=== PATIENT | male | born 1970 | race Caucasian/White ===

== ENCOUNTER 2024-12-16 07:53 | Inpatient (IN) | payer BC, SELFPAY ==
[2024-12-16] VITALS (52 sets, daily range): BP systolic 116–143; BP diastolic 65–93; PULSE 50–78; TEMP 36.6; O2SAT 96–99; BMI 27.9; BMI 28.4
--- NOTE | 2024-12-16 08:12 | CT_ITS ---
The [address] [address] Patient Name: JERRY ONEAL MRN: [id number] date: 1970 Sex: M Assigned Patient Location: ER Current Patient Location: ER Accession/Order Number: [id number] Exam Date: 12/16/2024 08:35 Report Date: 12/16/2024 08:43 At the request of: IVIS BARRAZA MD Procedure: CT stroke head/brain wo con CT BRAIN WITHOUT CONTRAST - stroke alert: CLINICAL HISTORY: Right arm numbness today COMPARISON: None TECHNIQUE: Contiguous axial unenhanced images were obtained through the brain. This CT exam was performed using one or more following dose reduction techniques: Automated exposure control, adjustment of the mA and/or kV according to patient size, or use of iterative reconstruction technique. FINDINGS: The ventricles are normal in size and position. There are no areas of abnormal attenuation. There is no hemorrhage, mass effect or extra-axial collections. Mild ethmoid mucosal thickening is seen. The remaining imaged paranasal sinuses and mastoid air cells are clear. CT/CT stroke head/brain wo con IMPRESSION: NO DEFINITE ACUTE INTRACRANIAL ABNORMALITY. FOLLOW-UP IS RECOMMENDED, SYMPTOMS WARRANT. Impression dictated by: Adeline Jimenez M.D. 12/16/2024 8:43 AM Dictation Location: [place] [address] Electronically authenticated by: [id number] Y Date: 12/16/2024 08:43
--- NOTE | 2024-12-16 08:14 | ECG_ITS ---
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 Measurements Intervals [facility] Rate: 56 P: 56 PA: 120 QRS: 54 QRSD: 88 T: 35 QT: 442 QTc: 435 Interpretive Statements 1100 Sinus rhythm 9110 normal ECG No previous ECG available for comparison Electronically Signed On 12-16-2024 9:32:31 EDT by NAOMIE SHAH M.D.
--- NOTE | 2024-12-16 08:14 | XR_ITS ---
The [place] [id number] Patient Name: JERRY ONEAL MRN: [id number] date: 1970 Sex: M Assigned Patient Location: ER Current Patient Location: ER Accession/Order Number: [id number] Exam Date: 12/16/2024 09:05 Report Date: 12/16/2024 09:06 At the request of: IVIS BARRAZA MD Procedure: XR chest 1V PORTABLE AP ERECT CHEST 0820 hours CLINICAL HISTORY: Right-sided numbness COMPARISON: None The heart is within normal limits. There is no vascular congestion. The lungs, as visualized, are clear. There is no effusion or pneumothorax. The osseous structures are intact. XR/XR chest 1V IMPRESSION: NO ACUTE FINDINGS Impression dictated by: Adeline Jimenez M.D. 12/16/2024 9:06 AM Dictation Location: [place] [address] Electronically authenticated by: [id number] Y Date: 12/16/2024 09:06
--- NOTE | 2024-12-16 08:15 | ED.GENADUL1 ---
HPI HPI - General Adult General Chief complaint: Neuro Symptoms/Deficit Stated complaint: LOST FEELING IN R HAND/ FOREARM Time Seen by Provider: 12/16/24 07:54 Source: patient Mode of arrival: walk-in Limitations: no limitations History of Present Illness HPI narrative: 54-year-old male presents for right arm numbness. This started 1 hour ago when he was getting ready to start his workday. There was no injury. He does not have a headache. His symptoms are isolated to his right arm. He describes a pins and needle sensation from just above his elbow down through his fingers. He feels like he cannot move his hand as well as he ought to be able to do. He is right-handed. Symptom has been continuous and he has never had anything like this previously. Related Data Home Medications ?Medication ?Instructions ?Recorded ?Confirmed No Known Home Medications 12/16/24 12/16/24 Allergies Allergy/AdvReac Type Severity Reaction Status Date / Time No Known Drug Allergies Allergy Verified 12/16/24 08:06 Review of Systems ROS Narrative A ten point review of systems is negative except as noted above. [facility] Medical History (Updated 12/16/24 @ 10:15 by Chay Vasquez MD) Hx of sleep apnea ?Z86.69 - Personal history of other diseases of the nervous system and sense organs (ICD-10) Surgical History (Updated 12/16/24 @ 08:13 by Jatinder Miller) History of back surgery ?Z98.890 - Other specified postprocedural states (ICD-10) Social History Little interest or pleasure in doing things: not at all Feeling down, depressed, or hopeless: not at all Exam Narrative Exam Narrative: Nurses note and vital signs reviewed and patient is not hypoxic. General: The patient appears well and in no apparent distress. Patient is resting comfortably on cart. Skin: Warm, dry, no pallor noted. There is no rash noted. Head: Normocephalic, atraumatic Eye: Normal conjunctiva, no drainage Ears, Nose, Mouth, and Throat: oral mucosa is moist. Nares patent. Cardiovascular: Regular Rate and Rhythm Respiratory: Patient is in no distress, no accessory muscle use, lungs are clear to auscultation, no wheezing, rales or rhonchi Back: non-tender GI: Soft and nontender Musculoskeletal: The patient has no evidence of calf tenderness, no pitting edema, symmetrical pulses noted bilaterally Neurological: A&O x4, normal speech; cranial nerves II through XII are intact. Motor strength intact in his lower extremities and his left arm. He is able to grasp with the right hand but the strength is minimally diminished compared to the left. Wrist flexion and extension is intact as is elbow flexion and extension. He has subjective numbness in his right forearm and hand. Psychiatric: Cooperative Constitutional Vital Signs, click to edit/add: Last Vital Signs Pulse 56 L 12/16/24 08:50 Resp 14 12/16/24 08:50 BP 128/78 12/16/24 08:35 Pulse Ox 97 12/16/24 08:50 O2 Del Method Room Air 12/16/24 08:12 Course Vital Signs Vital signs: Vital Signs Pulse Rate 70 12/16/24 08:07 Respiratory Rate 20 12/16/24 08:07 Blood Pressure 143/81 H 12/16/24 08:07 Pulse Oximetry 97 12/16/24 08:07 Oxygen Delivery Method Room Air 12/16/24 08:07 Pulse Rate 56 L 12/16/24 08:50 Respiratory Rate 14 12/16/24 08:50 Blood Pressure 128/78 12/16/24 08:35 Pulse Oximetry 97 12/16/24 08:50 Oxygen Delivery Method Room Air 12/16/24 08:12 Medical Decision Making [facility] Narrative Medical decision making narrative: His NIH score is 1, 1 point for sensation. CTA head and CTA head and neck were all negative. Stroke team was alerted at [facility] who interviewed him by video and pros and cons of tPA versus other treatments were discussed. The decision was made to load him with aspirin and Plavix, no tPA, and to admit him here for further workup. Treatment diagnosis and disposition were discussed with the patient and his . Differential Diagnosis Differential Diagnosis: Stroke, paresthesia, intracranial hemorrhage Lab Data Lab results reviewed: Yes I reviewed the patient's lab results Labs: Lab Results 12/16/24 Range/Units 08:35 WBC 5.1 (4.0-11.0) 10^3/uL RBC 4.07 L (4.70-6.10) 10^6/uL Hgb 12.9 L (14.0-18.0) g/dL Hct 37.3 L (42.0-54.0) % MCV 91.6 (80.0-94.0) fL MCH 31.7 (25.9-34.0) pg MCHC 34.6 (29.9-35.2) g/dL RDW 12.6 (11.0-15.0) % Plt Count 296 (150-450) 10^3/uL MPV 10.4 (9.5-13.5) fL Neut % (Auto) 54.5 (43.0-75.0) % Lymph % (Auto) 29.9 (20.5-60.0) % [place] % (Auto) 13.2 H (1.7-12.0) % Eos % (Auto) 1.0 (0.9-7.0) % Baso % (Auto) 1.2 (0.2-2.0) % Neut # (Auto) 2.8 (1.4-6.5) 10^3/uL Lymph # (Auto) 1.5 (1.2-3.8) 10^3/uL [place] # (Auto) 0.7 (0.3-0.8) 10^3/uL Eos # (Auto) 0.1 (0.0-0.7) 10^3/uL Baso # (Auto) 0.1 (0.0-0.1) 10^3/uL Abs Immat Gran (auto) 0.01 (0.00-0.03) 10^3/uL Imm/Tot Granulo (auto) 0.2 (0.0-0.5) % PT 10.6 (9.0-11.6) sec INR 1.00 APTT 26.2 (22.3-36.2) sec Sodium 142 (136-145) mmol/L Potassium 4.6 (3.5-5.1) mmol/L Chloride 106 (98-107) mmol/L Carbon Dioxide 28.4 (21.0-32.0) mmol/L Anion Gap 12.2 BUN 22.0 H (7.0-18.0) mg/dL Creatinine 1.03 (0.70-1.30) mg/dL Est GFR ( Amer) >60 (>=60 mL/min/1.73m^2) Est GFR (Non-Af Amer) >60 (>=60 mL/min/1.73m^2) BUN/Creatinine Ratio 21.4 Glucose 104 (74-106) mg/dL Calcium 9.0 (8.5-10.1) mg/dL Imaging Data CT scan - head: Radiologist's impression: ITS Impressions Brain CT 12/16/24 08:12 IMPRESSION: NO DEFINITE ACUTE INTRACRANIAL ABNORMALITY. FOLLOW-UP IS RECOMMENDED, SYMPTOMS WARRANT. Impression dictated by: Adeline Jimenez M.D. 12/16/2024 8:43 AM Dictation Location: [email or web address] Electronically authenticated by: [id number] Y Date: 12/16/2024 08:43 Chest X-Ray 12/16/24 08:14 IMPRESSION: NO ACUTE FINDINGS Impression dictated by: Adeline Jimenez M.D. 12/16/2024 9:06 AM Dictation Location: [email or web address] Electronically authenticated by: [id number] Y Date: 12/16/2024 09:06 Head CTA 12/16/24 08:46 IMPRESSION: SLIGHT LIMITED STUDY, WITHOUT OBVIOUS CRITICAL STENOSIS OR VASCULAR OCCLUSIVE DISEASE. Impression dictated by: Adeline Jimenez M.D. 12/16/2024 10:04 AM Dictation Location: [email or web address] Electronically authenticated by: [id number] Y Date: 12/16/2024 10:04 Neck CTA 12/16/24 08:46 IMPRESSION: SLIGHT LIMITED STUDY, WITHOUT OBVIOUS CRITICAL STENOSIS OR VASCULAR OCCLUSIVE DISEASE. Impression dictated by: Adeline Jimenez M.D. 12/16/2024 10:04 AM Dictation Location: [facility] Electronically authenticated by: [id number] Y Date: 12/16/2024 10:04 ECG Data Attestation: I personally reviewed and interpreted this ECG as follows: (EKG on my interpretation shows sinus rhythm with rate of 56 and no acute change) Critical Care Time Critical Care Time Critical Care Time: Yes Total Critical Care Time: 35 Attestation: Due to the high probability of sudden and clinically significant deterioration in the patient's condition he/she required the highest level of my preparedness to intervene urgently I provided critical care time including documentation time, medication orders and management, reevaluation, vital sign assessment, ordering and reviewing of lab tests, ordering and reviewing of x-ray studies, and admission orders. Aggregate critical care time is 35 minutes including only time during which I was engaged in work directly related to his/her care and did not include time spent treating other patients simultaneously. Discharge Plan Discharge Chief Complaint: Neuro Symptoms/Deficit Clinical Impression: Cerebrovascular accident Patient Disposition: Admitted As Inpatient Time of Disposition Decision: 10:15 Condition: Fair
--- NOTE | 2024-12-16 08:46 | CT_ITS ---
The [address] [address] Patient Name: JERRY ONEAL MRN: [id number] date: 1970 Sex: M Assigned Patient Location: ER Current Patient Location: Accession/Order Number: [id number] Exam Date: 12/16/2024 09:47 Report Date: 12/16/2024 10:04 At the request of: IVIS BARRAZA MD Procedure: CT angio neck CTA HEAD AND NECK WITH CONTRAST CLINICAL DATA: Right arm numbness COMPARISON: None Spiral images were obtained through the head and neck following 100 mL of Omnipaque 350. Sagittal and coronal MIP as well as 3-D volume rendered reconstructions of the carotid arteries and [place] were reviewed. Stenosis is evaluated using NASCET criteria. This CT exam was performed using one or more following dose reduction techniques: Automated exposure control, adjustment of the mA and/or kV according to patient size, or use of iterative reconstruction technique. The aortic arch and proximal great vessels, as visualized show no obvious abnormalities. The vertebral arteries are not well seen proximally though this is thought to be technical. Otherwise, they are symmetric in size, without definite dissection or stenosis. No carotid artery plaque or luminal stenosis is seen. There are some shotty cervical lymph nodes. Degenerative changes are seen at the spine, greatest at C6-7 where there is endplate spurring resulting in thecal sac effacement and bilateral foraminal encroachment. The upper imaged lungs show no contributory findings. There is motion artifact. The vertebral arteries appear small distally. The basilar and posterior cerebral arteries are patent with origin of the posterior cerebral artery on the left. There is minor carotid siphon plaque, without significant associated luminal narrowing. Peripheral branches of the middle cerebral arteries are not as well seen and this may relate to motion and limited contrast. The anterior and middle cerebral arteries are otherwise patent, without focal stenosis or suspected thrombosis. No definite aneurysms are seen. CT/CT angio head IMPRESSION: SLIGHT LIMITED STUDY, WITHOUT OBVIOUS CRITICAL STENOSIS OR VASCULAR OCCLUSIVE DISEASE. Impression dictated by: Adeline Jimenez M.D. 12/16/2024 10:04 AM Dictation Location: [place] [address] Electronically authenticated by: [id number] Y Date: 12/16/2024 10:04
--- NOTE | 2024-12-16 08:46 | CT_ITS ---
The [address] [address] Patient Name: JERRY ONEAL MRN: [id number] date: 1970 Sex: M Assigned Patient Location: ER Current Patient Location: Accession/Order Number: [id number] Exam Date: 12/16/2024 09:47 Report Date: 12/16/2024 10:04 At the request of: IVIS BARRAZA MD Procedure: CT angio neck CTA HEAD AND NECK WITH CONTRAST CLINICAL DATA: Right arm numbness COMPARISON: None Spiral images were obtained through the head and neck following 100 mL of Omnipaque 350. Sagittal and coronal MIP as well as 3-D volume rendered reconstructions of the carotid arteries and [place] were reviewed. Stenosis is evaluated using NASCET criteria. This CT exam was performed using one or more following dose reduction techniques: Automated exposure control, adjustment of the mA and/or kV according to patient size, or use of iterative reconstruction technique. The aortic arch and proximal great vessels, as visualized show no obvious abnormalities. The vertebral arteries are not well seen proximally though this is thought to be technical. Otherwise, they are symmetric in size, without definite dissection or stenosis. No carotid artery plaque or luminal stenosis is seen. There are some shotty cervical lymph nodes. Degenerative changes are seen at the spine, greatest at C6-7 where there is endplate spurring resulting in thecal sac effacement and bilateral foraminal encroachment. The upper imaged lungs show no contributory findings. There is motion artifact. The vertebral arteries appear small distally. The basilar and posterior cerebral arteries are patent with origin of the posterior cerebral artery on the left. There is minor carotid siphon plaque, without significant associated luminal narrowing. Peripheral branches of the middle cerebral arteries are not as well seen and this may relate to motion and limited contrast. The anterior and middle cerebral arteries are otherwise patent, without focal stenosis or suspected thrombosis. No definite aneurysms are seen. CT/CT angio neck IMPRESSION: SLIGHT LIMITED STUDY, WITHOUT OBVIOUS CRITICAL STENOSIS OR VASCULAR OCCLUSIVE DISEASE. Impression dictated by: Adeline Jimenez M.D. 12/16/2024 10:04 AM Dictation Location: [place] [address] Electronically authenticated by: [id number] Y Date: 12/16/2024 10:04
[2024-12-16 08:47] LABS: Basophils Absolute Auto 0.1 10^3/uL (0.0-0.1); Basophils Percent Auto 1.2 % (0.2-2.0); Eosinophils Absolute Auto 0.1 10^3/uL (0.0-0.7); Hematocrit 37.3 % (42.0-54.0); Hemoglobin 12.9 g/dL (14.0-18.0); Immature Granulocytes Abs Auto 0.01 10^3/uL (0.00-0.03); Immature Granulocytes Pct Auto 0.2 % (0.0-0.5); Lymphocytes Absolute Auto 1.5 10^3/uL (1.2-3.8); Lymphocytes Percent Auto 29.9 % (20.5-60.0); Mean Corpuscular HGB Conc 34.6 g/dL (29.9-35.2); Mean Corpuscular Hemoglobin 31.7 pg (25.9-34.0); Mean Corpuscular Volume 91.6 fL (80.0-94.0); Mean Platelet Volume 10.4 fL (9.5-13.5); Monocytes Absolute Auto 0.7 10^3/uL (0.3-0.8); Monocytes Percent Auto 13.2 % (1.7-12.0); Neutrophils Absolute Auto 2.8 10^3/uL (1.4-6.5); Neutrophils Percent Auto 54.5 % (43.0-75.0); Platelet Count 296 10^3/uL (150-450); Red Blood Count 4.07 10^6/uL (4.70-6.10); Red Cell Distribution Width 12.6 % (11.0-15.0); White Blood Count 5.1 10^3/uL (4.0-11.0)
[2024-12-16 08:50] LABS: Anion Gap 12.2; BUN Creatinine Ratio 21.4; Carbon Dioxide 28.4 mmol/L (21.0-32.0); Chloride 106 mmol/L (98-107); Estimated GFR (African America >60 (>=60 mL/min/1.73m^2); Estimated GFR (Non-African Ame >60 (>=60 mL/min/1.73m^2); Glucose 104 mg/dL (74-106); Potassium 4.6 mmol/L (3.5-5.1); Sodium 142 mmol/L (136-145)
[2024-12-16 09:00] LABS: Partial Thromboplastin Time 26.2 sec (22.3-36.2); Prothrombin Time 10.6 sec (9.0-11.6)
--- NOTE | 2024-12-16 10:16 | MR_ITS ---
[address] [address] Patient Name: JERRY ONEAL MRN: [id number] date: 1970 Sex: M Assigned Patient Location: MS Current Patient Location: MS Accession/Order Number: [id number] Exam Date: 12/16/2024 17:42 Report Date: 12/16/2024 17:48 At the request of: MARYLOU ARREDONDO MD Procedure: MR head/brain wo con EXAMINATION: MRI OF THE BRAIN WITHOUT CONTRAST CLINICAL HISTORY: CVA COMPARISON: CT angiogram 12/16/2024 TECHNIQUE: Multiecho, multiplanar imaging of the brain was performed without enhancement. FINDINGS: Abnormal restricted diffusion left precentral gyrus corresponding within the region of the left hand knob. Remote focus of gliosis left parietal lobe, otherwise ventricles and sulci otherwise unremarkable size and configuration for the patient's age. No shift of midline structure. Basal cisterns are patent. Remote right cerebellar stroke with associated hemosiderin. Major intracranial arterial vascular flow voids appear preserved. Cataract surgery. Gtqn-yb-dvoloqud ethmoid sinus mucosal thickening. MR/MR head/brain wo con IMPRESSION: Acute stroke left precentral gyrus within the region of the left hand knob. No hemorrhagic transformation.. Scattered foci of remote stroke notably left parietal lobe and right cerebellum. Impression dictated by: Jaden Torres M.D. 12/16/2024 5:48 PM Dictation Location: [place] [address] Electronically authenticated by: [id number] Y Date: 12/16/2024 17:48
--- NOTE | 2024-12-16 10:16 | CA_ITS ---
Patient Name: JERRY ONEAL MR#: [id number] : 1970 Exam Date: 12/16/2024 Ordering Doctor: MARYLOU ARREDONDO ECHOCARDIOGRAM REPORT PROCEDURE: CA ECHO W/ CON INDICATIONS: CVA COMPARISON: None. DESCRIPTION: COMPLETE ECHOCARDIOGRAM Real-time transthoracic echocardiography with 2D, M-mode, spectral and color flow Doppler performed. QUALITY: Lumason contrast was administered due to suboptimal imaging for left ventricular opacification to improve delineation of endocardial boarders. Lumason contrast was administered to rule out possible presence of thrombus. LEFT VENTRICLE: Normal chamber size. Normal left ventricular wall thickness. Normal systolic function. Estimated left ventricular ejection fraction is 55%. No evidence of left ventricular thrombus is seen. LV EF: Normal left ventricular ejection fraction, (55%). DIASTOLIC: Normal diastolic function. ATRIAL SEPTUM: LEFT ATRIUM: Normal chamber size. RIGHT ATRIUM: Mild dilatation. RIGHT VENTRICLE: Normal chamber size. Normal right ventricular systolic function. TRICUSPID VALVE: Normal mobility and thickness. No stenosis with no regurgitation. Unable to assess right-sided pressures due to lack of measurable tricuspid regurgitation. MITRAL VALVE: Normal mobility and thickness. No evidence of mitral valve stenosis. There is no mitral annular calcification. No mitral regurgitation. AORTIC VALVE: Normal trileaflet appearance. No visible sclerosis. Normal leaflet mobility. No evidence of aortic valve stenosis. No aortic regurgitation. AORTIC ROOT: Normal diameter and appearance, measuring 3.9 cm. PULMONIC VALVE: Normal thickness and mobility. No stenosis. Trivial regurgitation. PERICARDIUM: No evidence of pericardial effusion. IVC: IVC is dilated (2.3 cm), does not fully collapse. PLEURA: CONCLUSION: 1. Normal left ventricular size and systolic function. LVEF is estimated at 55%. No evidence of wall motion abnormalities. No evidence of left ventricular thrombus. 2. Normal right ventricular size and systolic function. 3. No significant valvular dysfunction. 4. Unable to assess right-sided pressures due to lack of measurable tricuspid regurgitation. Adult Echocardiography Procedure Report Left Ventricle LVEDD (3.7 - 5.6 cm): 5.41 cm LVESD (2.2 - 4.0 cm): 4.27 cm LVIVS thickness (0.6 - 1.2 cm): 0.96 cm LVPW thickness (0.5 - 1.0 cm): 1.04 cm e': 0.10 m/s E - e': 4.15 LVOT Max Gradient: 1.95 mm[Hg] LVOT Area (cm2): 0.70 m/s Peak Velocity (LVOT): 0.70 m/s LVOT Diameter 2.60 cm Left Ventricular Ejection Fraction: 55% Left Atrium LA Volume Index (2D A2C): 32.20 ml/m2 Left Atrium Systolic Dimension: 3.25 cm Mitral Valve MV E to A Ratio: 0.96 Mitral Valve A-Wave Peak Velocity: 0.45 m/s Mitral Valve E-Wave Peak Velocity: 0.43 m/s Right Ventricle Aorta AO Root Diam: 3.92 cm Aortic Valve AoV Area (Peak Timoteo): 4.15 cm2, 4.15 cm2 Peak Velocity(Antegrade Flow): 0.89 m/s Peak Gradient(Antegrade Flow): 3.20 mm[Hg] Tricuspid Valve Pulmonic Valve Peak Gradient: 1.56 mm[Hg], 1.63 mm[Hg] Right Atrium Right Atrium Systolic Pressure: 59.13 ml, 59.13 ml Dictated by: Leland Anna M.D. on 12/16/2024 at 21:34 Approved by: Leland Anna M.D. on 12/16/2024 at 21:38
[2024-12-16] MEDS: ASPIRIN 325 MG TABLET PO (10:27)
[2024-12-16] MEDS: CLOPIDOGREL BISULFATE 75 MG TABLET 300 MG PO (10:30)
[2024-12-16 10:33] LABS: Chol HDL Ratio 2.3; Cholesterol 200 mg/dL (<=200); Estimated Average Glucose 114 mg/dL; Glycohemoglobin A1C 5.6 % (4.5-6.2); HDL Cholesterol 88 mg/dL (40-60); Triglycerides 38 mg/dL (<=150); VLDL CHOLESTEROL 7.6 mg/dL
--- NOTE | 2024-12-16 11:52 | P.IMHP_ITS ---
Internal Medicine - H&P: HPI History of Present Illness Chief complaint: LOST FEELING IN R HAND/FOREARM, CEREBROVASCULAR AC Narrative: This is a 54 y.o male with no past medical history, who presents today due to sudden weakness and numbness of his right hand while working today. History obtained from the patient, his at bedside as well as from the ED staff and his chart. 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 He did not have any speech difficulties or other focal weakness or dizziness or syncope. He denies any chest pain or nausea or vomiting or diaphoresis. He was brought to the hospital for stroke workup. His symptoms improved during the ER stay but still complained of some weakness when I saw him. In the ED, patient's vitals were stable. His CT head without contrast as well as CT angio of the neck and brain were all negative for acute pathology. His labs in the ED were not significant, EKG showed sinus rhythm with heart rate of 56 bpm. No signs of arrhythmia. ED contacted neurointerventional team at [facility] who video call the patient and did a video visit with them, his NIH score in the ER was 1, and a discussion was held between the neurointerventional team as well as the patient and his at bedside and they were against the recommendation for tPA. They recommended to admit him here to [facility] and the need to transfer to any other hospital for now. For stroke workup. I discussed the plan with the patient and his . He told me that he works 10-hour shifts every day, his mother and father had heart attacks when they were 74-year-old each. He drinks alcohol 4-5 beers daily last drink was last night. No smoking no drug use. Review of Systems ROS Status of ROS 10 or more systems reviewed and unremark able except as noted in history and below [facility] Medical History (Updated 12/16/24 @ 11:05 by Teresa Love) Obstructive sleep apnea on CPAP ?G47.33 - Obstructive sleep apnea (adult) (pediatric) (ICD-10) Hx of sleep apnea ?Z86.69 - Personal history of other diseases of the nervous system and sense organs (ICD-10) Surgical History (Updated 12/16/24 @ 08:13 by Jatinder Miller) History of back surgery ?Z98.890 - Other specified postprocedural states (ICD-10) Family History (Updated 12/16/24 @ 11:06 by Teresa Love) Father Family history of CHF (congestive heart failure) Family history of myocardial infarction Mother Family history of CHF (congestive heart failure) Family history of myocardial infarction Social History (Updated 12/16/24 @ 11:10 by Teresa Love) Within the past year, how often did you have a drink containing alcohol: 4 or more times a week Within the past year, how many standard drinks containing alcohol did you have on a typical day: 5 or 6 Within the past year, how often did you have six or more drinks on one occasion: daily or almost daily Total score: 8 Score interpretation: A score of 4 or more indicates drinking is likely to affect patient's safety. Smoking status: Former smoker Non-prescribed substance use: denies use Previous occupational history: [employer] Highest level of school completed/degree received: high school graduate Are you now , , , , never or living with a partner: In a typical week, how many times do you talk on the telephone with family, friends, or neighbors: twice per week How often do you get together with friends or relatives: twice per week How often do you attend anglican or anglican services: never Do you belong to any clubs or organizations such as anglican groups unions, fraternal or athletic groups, or school groups: no Total score: 2 Score interpretation: A score of greater than or equal to 2 indicates the lowest level of social isolation. Little interest or pleasure in doing things: not at all Feeling down, depressed, or hopeless: not at all Feel stressed/tense/nervous/anxious/difficulty sleeping: not at all Meds Home Medications and Allergies Home Medications ?Medication ?Instructions ?Recorded ?Confirmed ?Type No Known Home Medications 12/16/2411/24 History Allergies Allergy/AdvReac Type Severity Reaction Status Date / Time No Known Drug Allergies Allergy Verified 12/16/24 08:06 Exam Narrative Exam Narrative: General: The patient appears well and in no apparent distress. Patient is resting comfortably on cart. Very pleasant and cooperative. Skin: Warm, dry, no pallor noted. There is no rash noted. Head: Normocephalic, atraumatic Eye: Normal conjunctiva, no drainage Ears, Nose, Mouth, and Throat: oral mucosa is moist Cardiovascular: Regular Rate and Rhythm, normal S1 and S2 Respiratory: Patient is in no distress, no accessory muscle use, lungs are clear to auscultation, no wheezing, rales or rhonchi GI: Soft and nontender, no signs of acute abdomen Musculoskeletal: The patient has no evidence of calf tenderness, no pitting edema, symmetrical pulses noted bilaterally Neurological: A&O x4, normal speech; cranial nerves II through XII are intact. Right sided hand mild weak drip. NIH is 1 maximum, No numbness anymore in right hand. No focal motor or sensory deficits. Constitutional Vital Signs, click to edit/add: Last Vital Signs Pulse 57 L 12/16/24 11:11 Resp 18 12/16/24 11:11 BP 136/93 H 12/16/24 11:11 Pulse Ox 99 12/16/24 11:11 O2 Del Method Room Air 12/16/24 11:17 Internal Medicine - H&P: Reslt Labs Labs: Short CBC 12/16/24 Range/Units 08:35 WBC 5.1 (4.0-11.0) 10^3/uL Hgb 12.9 L (14.0-18.0) g/dL Hct 37.3 L (42.0-54.0) % Plt Count 296 (150-450) 10^3/uL BMP 12/16/24 08:35 Sodium 142 Potassium 4.6 Chloride 106 Carbon Dioxide 28.4 BUN 22.0 H Creatinine 1.03 Glucose 104 Calcium 9.0 Assessment and Plan Assessment and Plan (1) Cerebrovascular accident: (2) History of back surgery: Plan Right Hand parasthesia and weakness, Ruling out TIA vs CVA -Admit pt to medical floor with telemetry under hospitalist service -Patient was already seen by neurointerventional team at [facility], he was not a candidate for tPA or mechanical thrombectomy. Decision was made by neurointerventional team at primary care to admit and here to [facility]. - Start aspirin 81 mg p.o. daily - Start atorvastatin 40 mg nightly - Start Plavix 75 mg p.o. - Obtain A1c, lipid panel, and TSH for risk stratification - Obtain MRI brain without contrast - Obtain echo - Patient will need to be discharged athletic monitor when the time comes -PT/OT/AUTOMOBILE SERVICE STATION MECHANIC alber - I discussed the plan with the patient and in details. Counseled on alcohol cessation. Answered all her questions. Nursing team was present during this conversation
[2024-12-16] MEDS: SULFUR HEXAFLUORIDE MICROSPHR 25 MG/5 ML VIAL 10 MG IV (15:41)
[2024-12-16] MEDS: ATORVASTATIN CALCIUM 40 MG TABLET PO (21:09)
[2024-12-17] VITALS (8 sets, daily range): BP systolic 126–145; BP diastolic 80–81; PULSE 48–76; TEMP 36.6–36.8; O2SAT 97–98
[2024-12-17 05:08] LABS: Basophils Absolute Auto 0.1 10^3/uL (0.0-0.1); Basophils Percent Auto 1.1 % (0.2-2.0); Eosinophils Absolute Auto 0.2 10^3/uL (0.0-0.7); Eosinophils Percent Auto 2.8 % (0.9-7.0); Hemoglobin 12.9 g/dL (14.0-18.0); Immature Granulocytes Abs Auto 0.01 10^3/uL (0.00-0.03); Immature Granulocytes Pct Auto 0.2 % (0.0-0.5); Lymphocytes Percent Auto 37.1 % (20.5-60.0); Mean Corpuscular HGB Conc 33.9 g/dL (29.9-35.2); Mean Corpuscular Hemoglobin 31.3 pg (25.9-34.0); Mean Corpuscular Volume 92.2 fL (80.0-94.0); Mean Platelet Volume 10.3 fL (9.5-13.5); Monocytes Absolute Auto 0.7 10^3/uL (0.3-0.8); Monocytes Percent Auto 13.1 % (1.7-12.0); Neutrophils Absolute Auto 2.4 10^3/uL (1.4-6.5); Neutrophils Percent Auto 45.7 % (43.0-75.0); Platelet Count 271 10^3/uL (150-450); Red Blood Count 4.12 10^6/uL (4.70-6.10); Red Cell Distribution Width 12.6 % (11.0-15.0); White Blood Count 5.3 10^3/uL (4.0-11.0)
[2024-12-17 05:33] LABS: Alanine Aminotransferase 25 U/L (16-63); Albumin Globulin Ratio 1.1; Albumin Level 3.4 g/dL (3.4-5.0); Alkaline Phosphatase 55 U/L (46-116); Aspartate Amino Transferase 19 U/L (15-37); Bilirubin Total 0.5 mg/dL (0.2-1.0); Calcium 8.9 mg/dL (8.5-10.1); Chloride 105 mmol/L (98-107); Estimated GFR (African America >60 (>=60 mL/min/1.73m^2); Estimated GFR (Non-African Ame >60 (>=60 mL/min/1.73m^2); Globulin 3.1 g/dL; Glucose 101 mg/dL (74-106); Sodium 139 mmol/L (136-145); Total Protein 6.5 g/dL (6.4-8.2)
[2024-12-17] MEDS: ASPIRIN 81 MG TABLET.DR PO (08:07)
[2024-12-17] MEDS: CLOPIDOGREL BISULFATE 75 MG TABLET PO (08:10)
--- NOTE | 2024-12-17 10:25 | CA_ITS ---
Patient Name: JERRY ONEAL MR#: [id number] : 1970 Exam Date: 12/17/2024 Ordering Doctor: MARYLOU ARREDONDO ECHOCARDIOGRAM REPORT PROCEDURE: CA ECHO LIMITED INDICATIONS: bubble study, recent CVA, complete echocardiogram done 12/16/2024 COMPARISON: None. DESCRIPTION: Limited ECHOCARDIOGRAM Real-time transthoracic echocardiography with 2D and M-mode performed. QUALITY: Technical quality was good. Limited echocardiogram for bubble study. Complete echocardiogram was done previous day (12/16/2024). LEFT VENTRICLE: LV EF: DIASTOLIC: ATRIAL SEPTUM: ASD vs PFO Agitated saline contrast reveals an intra-cardiac shunt. LEFT ATRIUM: RIGHT ATRIUM: RIGHT VENTRICLE: TRICUSPID VALVE: MITRAL VALVE: AORTIC VALVE: AORTIC ROOT: PULMONIC VALVE: PERICARDIUM: IVC: PLEURA: CONCLUSION: 1. Agitated saline injections reveal an intracardiac shunt with large amount of contrast passage. Dictated by: Leland Anna M.D. on 12/17/2024 at 19:01 Approved by: Leland Anna M.D. on 12/17/2024 at 19:12
--- NOTE | 2024-12-17 11:22 | SWNOTE1 ---
SW and I stopped in pt's room to discuss OT recommendation of outpatient therapy. Pt voiced he would like to think about it. SW to follow as needed.
--- NOTE | 2024-12-17 12:13 | CM.NOTE ---
Rounds made with Dr. Kolb. Dr. Kolb reviews Radiology findings with Mr. Barrera and . Reviews recommendations by Neurologist. Will order follow up with Neurology for today. Mrs. Barrera states Mr. Barrera recently started on home cpap-will bring in for use while in hospital. Echo with bubble study ordered and ultrasound legs. All questions answered by Dr. Kolb.
--- NOTE | 2024-12-17 15:55 | P.IMPN_ITS ---
Progress Note: A&P Assessment and Plan (1) Cerebrovascular accident: (2) History of back surgery: Plan Right Hand parasthesia and weakness Acute CVA iso PFO DVT of lower extremities bilaterally is ruled out SHARA on CPAP -Admit pt to medical floor with telemetry under hospitalist service -Patient was already seen by neurointerventional team at [facility], he was not a candidate for tPA or mechanical thrombectomy. Decision was made by neurointerventional team at primary care to admit and here to [facility]. - Start aspirin 81 mg p.o. daily - Start atorvastatin 40 mg nightly - Start Plavix 75 mg p.o. - Obtain A1c, lipid panel, and TSH for risk stratification - Obtain MRI brain without contrast - Obtain echo - Patient will need to be discharged teletypesetter monitor when the time comes -PT/OT/AUTO BRAKE MECHANIC eval - I discussed the plan with the patient and in details. Counseled on alcohol cessation. Answered all her questions. Nursing team was present during this conversation 12/17/2024 Saw the pt and at bedside. Physical exam and HPI as above. I was informed by the nursing team that pt had a positive bubble study on his echo today, the limited echo done yesterday showed normal LVEF with no evidence of LV thrombus, and his right ventricular size and systolic function were normal, and no valvular dysfunction. I initially spoke to Dr. Islas, public health engineer adon, and he recommended Eliquis and follow up with cardiology for evaluation for PFO closure, which is usually the field of Dr. Calvillo or Dr. Anna, I then received a call from Neurology recommending only aspirin 81 mg PO daily, and to send for outpatient cardio follow up for evaluation for MUNIR and possible PFO closure. I circled back with Dr. Islas, and he recommended consulting with Dr. Calvillo, who recommended against anticoagulation in the absence of presence of DVT or reported hx of thrombophilia. Also spoke to neurology again and confirmed they want the pt to be on aspirin. Will order teletypesetter monitor on patient's discharge, would not order hypercoagulable workup given pt;s acute CVA. Discussed the recommendations with the pt and his . Answered all their questions. Will make sure pt has a hematology, cardiology, and neurology workup as outpt. Will dc pt tomorrow with a teletypesetter monitor. 1. Normal left ventricular size and systolic function. LVEF is estimated at 55%. No evidence of wall motion abnormalities. No evidence of left ventricular thrombus. 2. Normal right ventricular size and systolic function. 3. No significant valvular dysfunction. 4. Unable to assess right-sided pressures due to lack of measurable tricuspid regurgitation. Internal Medicine - PN: Subj Subjective Interval history: Pt seen and examined at bedside. He was accompanied by his in the room. His right hand is still weaker than the left, but overall improving. Was walking in the room.Worked with PT and OT today. Labs reviewed Exam Narrative Exam Narrative: General: The patient appears well and in no apparent distress. Patient is resting comfortably on cart. Very pleasant and cooperative. Skin: Warm, dry, no pallor noted. There is no rash noted. Head: Normocephalic, atraumatic Eye: Normal conjunctiva, no drainage Ears, Nose, Mouth, and Throat: oral mucosa is moist Cardiovascular: Regular Rate and Rhythm, normal S1 and S2 Respiratory: Patient is in no distress, no accessory muscle use, lungs are clear to auscultation, no wheezing, rales or rhonchi GI: Soft and nontender, no signs of acute abdomen Musculoskeletal: The patient has no evidence of calf tenderness, no pitting edema, symmetrical pulses noted bilaterally Neurological: A&O x4, normal speech; cranial nerves II through XII are intact. Right sided hand mild weak drip. better than yesterday, No numbness anymore in right hand. No focal motor or sensory deficits. Constitutional Vital Signs, click to edit/add: Last Vital Signs Temp 98.2 F 12/17/24 07:27 Pulse 63 12/17/24 10:18 Resp 16 12/17/24 07:27 BP 145/81 H 12/17/24 07:27 Pulse Ox 98 12/17/24 07:27 O2 Del Method Room Air 12/17/24 07:27 Internal Medicine - PN: Obj Da Labs Labs: Laboratory Results - last 24 hr 12/17/24 04:56 WBC 5.3 RBC 4.12 L Hgb 12.9 L Hct 38.0 L MCV 92.2 MCH 31.3 MCHC 33.9 RDW 12.6 Plt Count 271 MPV 10.3 Neut % (Auto) 45.7 Lymph % (Auto) 37.1 Jerauld % (Auto) 13.1 H Eos % (Auto) 2.8 Baso % (Auto) 1.1 Neut # (Auto) 2.4 Lymph # (Auto) 2.0 Jerauld # (Auto) 0.7 Eos # (Auto) 0.2 Baso # (Auto) 0.1 Abs Immat Gran (auto) 0.01 Imm/Tot Granulo (auto) 0.2 Sodium 139 Potassium 4.0 Chloride 105 Carbon Dioxide 27.0 Anion Gap 11.0 BUN 18.0 Creatinine 0.82 Est GFR ( Amer) >60 Est GFR (Non-Af Amer) >60 BUN/Creatinine Ratio 22.0 Glucose 101 Calcium 8.9 Total Bilirubin 0.5 AST 19 ALT 25 Alkaline Phosphatase 55 Total Protein 6.5 Albumin 3.4 Globulin 3.1 Albumin/Globulin Ratio 1.1
--- NOTE | 2024-12-17 16:56 | PM.DS1 ---
DS: Providers Provider Date of admission: 12/16/24 10:55 Primary care physician: Non-Staff Physician, Consults: 12/16/24 09:55 Consult to Telestroke Routine Reason for consultation: Numbness, right arm 12/16/24 10:16 Consult to Telestroke Routine Reason for consultation: CVA, seen by telestroke team in the ED 12/16/24 11:40 Occupational Therapy Eval and Treat Routine Reason for consultation: CVA Physical Therapy Eval and Treat Routine Reason for consultation: CVA Speech Therapy Eval and Treat Routine Reason for consultation: CVA Anticipated date of discharge: 12/17/24 DS: Diagnosis Discharge Diagnosis (1) Cerebrovascular accident: (2) History of back surgery: Plan As above DS: Summary Hospital Course Hospital Course: This is a 54 y.o male with no past medical history, who presents today due to sudden weakness and numbness of his right hand while working today. History obtained from the patient, his at bedside as well as from the ED staff and his chart. 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 He did not have any speech difficulties or other focal weakness or dizziness or syncope. He denies any chest pain or nausea or vomiting or diaphoresis. He was brought to the hospital for stroke workup. His symptoms improved during the ER stay but still complained of some weakness when I saw him. In the ED, patient's vitals were stable. His CT head without contrast as well as CT angio of the neck and brain were all negative for acute pathology. His labs in the ED were not significant, EKG showed sinus rhythm with heart rate of 56 bpm. No signs of arrhythmia. ED contacted neurointerventional team at [facility] who video call the patient and did a video visit with them, his NIH score in the ER was 1, and a discussion was held between the neurointerventional team as well as the patient and his at bedside and they were against the recommendation for tPA. They recommended to admit him here to [facility] and the need to transfer to any other hospital for now. For stroke workup. I discussed the plan with the patient and his . He told me that he works 10-hour shifts every day, his mother and father had heart attacks when they were 74-year-old each. He drinks alcohol 4-5 beers daily last drink was last night. No smoking no drug use. Right Hand parasthesia and weakness Acute CVA iso PFO DVT of lower extremities bilaterally is ruled out SHARA on CPAP -Admit pt to medical floor with telemetry under hospitalist service -Patient was already seen by neurointerventional team at [facility], he was not a candidate for tPA or mechanical thrombectomy. Decision was made by neurointerventional team at primary care to admit and here to [facility]. - Start aspirin 81 mg p.o. daily - Start atorvastatin 40 mg nightly - Start Plavix 75 mg p.o. - Obtain A1c, lipid panel, and TSH for risk stratification - Obtain MRI brain without contrast - Obtain echo - Patient will need to be discharged site monitor when the time comes -PT/OT/TECHNOLOGY APPLICATIONS TEACHER eval - I discussed the plan with the patient and in details. Counseled on alcohol cessation. Answered all her questions. Nursing team was present during this conversation 12/17/2024 Saw the pt and at bedside. Physical exam and HPI as above. I was informed by the nursing team that pt had a positive bubble study on his echo today, the limited echo done yesterday showed normal LVEF with no evidence of LV thrombus, and his right ventricular size and systolic function were normal, and no valvular dysfunction. I initially spoke to Dr. Islas, registered travel nurse surgical nurse practitioner, and he recommended Eliquis and follow up with cardiology for evaluation for PFO closure, which is usually the field of Dr. Calvillo or Dr. Anna, I then received a call from Neurology recommending only aspirin 81 mg PO daily, and to send for outpatient cardio follow up for evaluation for MUNIR and possible PFO closure. I circled back with Dr. Islas, and he recommended consulting with Dr. Calvillo, who recommended against anticoagulation in the absence of presence of DVT or reported hx of thrombophilia. Also spoke to neurology again and confirmed they want the pt to be on aspirin. Will order site monitor on patient's discharge, would not order hypercoagulable workup given pt;s acute CVA. Discussed the recommendations with the pt and his . Answered all their questions. Will make sure pt has a hematology, cardiology, and neurology workup as outpt. Will dc pt today as pt was so eager to leave, and there is nothing else to offer during this hospitalization. Plan was coordinated with neurology and cardiology service. Pt can be off work for 2 weeks, and also to use his CPAP at home, also counseled him to avoid laborious activities as much as possible. Status at Discharge Overall status at discharge: patient is back to baseline Time Spent with Patient Time attestation: Total time spent providing and/or coordinating discharge services: Exam Constitutional Vital Signs, click to edit/add: Last Vital Signs Temp 98.2 F 12/17/24 07:27 Pulse 63 12/17/24 10:18 Resp 16 12/17/24 07:27 BP 145/81 H 12/17/24 07:27 Pulse Ox 98 12/17/24 07:27 O2 Del Method Room Air 12/17/24 16:00 DS: Data Data Completed and Pending Labs on day of discharge: Labs from last 24 hours 12/17/24 04:56 WBC 5.3 RBC 4.12 L Hgb 12.9 L Hct 38.0 L MCV 92.2 MCH 31.3 MCHC 33.9 RDW 12.6 Plt Count 271 MPV 10.3 Neut % (Auto) 45.7 Lymph % (Auto) 37.1 Colbert % (Auto) 13.1 H Eos % (Auto) 2.8 Baso % (Auto) 1.1 Neut # (Auto) 2.4 Lymph # (Auto) 2.0 Colbert # (Auto) 0.7 Eos # (Auto) 0.2 Baso # (Auto) 0.1 Abs Immat Gran (auto) 0.01 Imm/Tot Granulo (auto) 0.2 Sodium 139 Potassium 4.0 Chloride 105 Carbon Dioxide 27.0 Anion Gap 11.0 BUN 18.0 Creatinine 0.82 Est GFR ( Amer) >60 Est GFR (Non-Af Amer) >60 BUN/Creatinine Ratio 22.0 Glucose 101 Calcium 8.9 Total Bilirubin 0.5 AST 19 ALT 25 Alkaline Phosphatase 55 Total Protein 6.5 Albumin 3.4 Globulin 3.1 Albumin/Globulin Ratio 1.1 Discharge Plan Discharge Disposition: Home, Self-Care Condition: Good Discharge Medications: New atorvastatin 40 mg Tablet 40 mg PO QHS 30 Days Qty: 30 0RF aspirin 81 mg Tablet,Delayed Release (Dr/Ec) 81 mg PO QD 30 Days Qty: 30 0RF Activity: resume usual activities as tolerated Print Language: Chinese Patient Instructions: Ischemic Stroke (GEN), Patent Foramen Ovale (DC), Patent Foramen Ovale (GEN) Activity Restrictions/Additional Instructions: FOLLOW UP WITH YOUR NEUROLOGIST AND ENGRAVER APPRENTICE DECORATIVE Forms: Portal Instructions Follow Up Appointments: . December 23 @ 2:45pm with [facility] [phone] . January 01 @ 11:45am with [place] [facility] at [facility] [phone] Sun. Jan.28 @ 11:30am with [facility] Neurology [address] [phone]
--- NOTE | 2024-12-18 14:34 | CM.DCFOLLOWU ---
1st attempt 12/18/24, no answer
--- NOTE | 2024-12-19 09:59 | CM.DCFOLLOWU ---
2nd attempt 12/19/24, no answer
--- NOTE | 2024-12-22 12:01 | CM.DCFOLLOWU ---
3rd attempt 12/22/24, no contact
== END 2024-12-17 17:29 | disposition home or self-care (01) | DRG 65 ==
LOC: ER 10:15 → MS 11:03
PROVIDERS: Admitting Provider Student in an Organized Health Care Education/Training Program; Emergency Provider Emergency Medicine; Visit Provider Student in an Organized Health Care Education/Training Program
DX: I63.9 Cerebral infarction, unspecified (principal); Q21.12 Patent foramen ovale; R29.701 NIHSS score 1; G47.33 Obstructive sleep apnea (adult) (pediatric); Z87.891 Personal history of nicotine dependence
CPT/HCPCS: 36415; 70450; 70496; 70498; 70551; 71045; 80048; 80053; 80061; 83036; 85025; 85610; 85730; 92523; 93005; 93270; 93308; 93880; 93970; 97110; 97161; 97165; 99285; C8929; Q9950; Q9967

== ENCOUNTER 2025-05-22 11:57 | Outpatient (OUT) | payer BC, SELFPAY ==
--- OUTSIDE RECORDS SUMMARY | 2025-05-22 12:04 | XMS_ITS | Encounter Summary ---
Author Organization [facility] Address [address] [place] [address] Care Team Providers Care Surgical Device Sales Representative Name Role Phone Marizol Sebastian MD Primary Care Provider [phone] Encounter Details DateTypeDepartmentCare Team (Latest Contact Info)Hlpocxjhluk26/14/2025Telephone [facility] [place] [address] [place] [address] Ana Flores MA Social History Tobacco UseTypesPacks/DayYears UsedDateSmoking Tobacco: NeverSmokeless Tobacco: NeverAlcohol UseStandard Drinks/WeekCommentsYes0 (1 standard drink = 0.6 oz pure alcohol)6 pack beer dailySex and Gender InformationValueDate RecordedSex Assigned at MorklKxgz66/01/2025 8:54 AM EDTLegal PpvZxor0612/17/2024 3:35 PM EDT Gender EpesmdjcUaoa68/01/2025 8:54 AM EDTSexual OrientationHeterosexual or Ahuzwxse00/01/2025 8:54 AM EDTdocumented as of this encounter Miscellaneous Notes * Telephone Encounter - Ana Flores MA - 05/08/2025 11:48 AM EST MD Ana Estevez MA; Leland Anna MD Thanks. He should be set up for PFO closure. ICE-guided, GORE device, on a day where Dr Anna and I can perform together (we do this because the numbers of PFO closures is low and we scrub on each other's cases) Thanks. Spoke with patient's and made her aware. I let her know it may be a week or more before she's contacted to schedule due to needing both Dr. George and Dr. Anna to be present on the case. She is hopeful this can be done before the end of the year, if possible. Orders entered. Munira made aware. documented in this encounter Plan of Treatment DateTypeDepartmentCare Team (Latest Contact Info)Bcjajyrzufu28/04/2025 6:30 AM ESTHospital Encounter [facility] [address] [place] [address] Magnus George MD [address] [place] [phone] PFO (patent foramen ovale)05/28/2025 8:30 AM EST - 05/28/2025 10:30 AM EST Surgery [facility] [address] [facility] [place] [address] Magnus George MD [address] [place] [phone] Patent foramen ovale closure [[id number] (CPT??)]documented as of this encounter Visit Diagnoses Not on filedocumented in this encounter Care Teams Team MemberRelationshipSpecialtyStart DateEnd Date Marizol Sebastian MD [address] [place] [address] PCP - GeneralFamily Medicine01/01/25documented as of this encounter
--- OUTSIDE RECORDS SUMMARY | 2025-05-22 12:04 | XMS_ITS | Encounter Summary ---
Author Organization [facility] Address [address] [facility] [place] [address] Care Team Providers Care Steel Tester Name Role Phone Marizol Sebastian MD Primary Care Provider [phone] Encounter Details DateTypeDepartmentCare Team (Latest Contact Info)Wjgvwftmkvx07/25/2025Travel Social History Tobacco UseTypesPacks/DayYears UsedDateSmoking Tobacco: NeverSmokeless Tobacco: NeverAlcohol UseStandard Drinks/WeekCommentsYes0 (1 standard drink = 0.6 oz pure alcohol)6 pack beer dailySex and Gender InformationValueDate RecordedSex Assigned at CysrvCfxe06/01/2025 8:54 AM EDTLegal NduGdtv0312/17/2024 3:35 PM EDT Gender LmkwaadgZlqa09/01/2025 8:54 AM EDTSexual OrientationHeterosexual or Rsogvbbw98/01/2025 8:54 AM EDTdocumented as of this encounter Plan of Treatment DateTypeDepartmentCare Team (Latest Contact Info)Wezhkgbmafg31/04/2025 6:30 AM ESTHospital Encounter [facility] Heart [facility] [address] [place] [phone] Magnus George MD [address] [facility] [address] [place] [place] [address] PFO (patent foramen ovale)05/28/2025 8:30 AM EST - 05/28/2025 10:30 AM EST Surgery [facility] Heart [facility] [address] [place] [address] Magnus George MD [address] [facility] [address] [facility] [place] [phone] Patent foramen ovale closure [03377 (CPT??)]documented as of this encounter Visit Diagnoses Not on filedocumented in this encounter Care Teams Team MemberRelationshipSpecialtyStart DateEnd Date Marizol Sebastian MD [address] [place] [address] PCP - GeneralFamily Medicine01/01/25documented as of this encounter
--- OUTSIDE RECORDS SUMMARY | 2025-05-22 12:04 | XMS_ITS | Encounter Summary ---
Author Organization [facility] Address [address] [place] [address] Care Team Providers Care Nut Culler Name Role Phone Marizol Sebastian MD Primary Care Provider [phone] Encounter Details DateTypeDepartmentCare Team (Latest Contact Info)Nguoggilsbs81/14/2025Orders Only [facility] Heart at [place] [address] [place] [address] Ana Flores MA PFO (patent foramen ovale) (Primary Dx); Pre-op testing Social History Tobacco UseTypesPacks/DayYears UsedDateSmoking Tobacco: NeverSmokeless Tobacco: NeverAlcohol UseStandard Drinks/WeekCommentsYes0 (1 standard drink = 0.6 oz pure alcohol)6 pack beer dailySex and Gender InformationValueDate RecordedSex Assigned at RxkfgBpjf94/01/2025 8:54 AM EDTLegal RztZisb9312/17/2024 3:35 PM EDT Gender SxexuslnXamd86/01/2025 8:54 AM EDTSexual OrientationHeterosexual or Ttgfkild01/01/2025 8:54 AM EDTdocumented as of this encounter Plan of Treatment DateTypeDepartmentCare Team (Latest Contact Info)Oqrxjqvmxea44/04/2025 6:30 AM ESTHospital Encounter [facility] [address] [place] [address] Magnus George MD [address] [facility] [address] [facility] [place] [address] PFO (patent foramen ovale)05/28/2025 8:30 AM EST - 05/28/2025 10:30 AM EST Surgery [facility] [address] [place] [address] Magnus George MD [address] [facility] [place] [phone] Patent foramen ovale closure [19869 (CPT??)]NameTypePriorityAssociated Diagnoses Order ScheduleCBC and differentialLabRoutine PFO (patent foramen ovale) Pre-op testing Expected: 05/08/2025 (Approximate), Expires: 05/08/2026asic metabolic panelLab Routine PFO (patent foramen ovale) Pre-op testing Expected: 05/08/2025 (Approximate), Expires: 05/08/2026documented as of this encounter Visit Diagnoses Diagnosis PFO (patent foramen ovale)- Primary Ostium secundum type atrial septal defect Pre-op testing Unspecified pre-operative examination PFO (patent foramen ovale)- Primary Ostium secundum type atrial septal defect PFO (patent foramen ovale) Ostium secundum type atrial septal defect documented in this encounter Care Teams Team MemberRelationshipSpecialtyStart DateEnd Date Marizol Sebastian MD [address] [place] [address] PCP - GeneralFamily Medicine01/01/25documented as of this encounter
--- OUTSIDE RECORDS SUMMARY | 2025-05-22 12:04 | XMS_ITS | Clinical Summary ---
Author Organization [facility] Address [address] [place] [address] Care Team Providers Care Squeak Rattle And Leak Repairer Name Role Phone Magno León MD Primary Care Provider [phone] Serena Obrien GASOLINE LOCOMOTIVE CRANE OPERATOR Unavailable [phone] Allergies No known active allergies Medications MedicationSigDispense QuantityRefillsLast FilledStart DateEnd DateStatus Aspirin Low Dose 81 MG EC tablet Take 81 mg by mouth Daily5Active atorvastatin (Lipitor) 40 MG tablet Take 40 mg by mouth Daily5Active Active Problems ProblemNoted DateDiagnosed DateColon cancer oujahtpan20/24/2024 Family History Medical HistoryRelationNameCommentsHeart attackFatherHeart diseaseFatherHeart attackMotherHeart diseaseMotherMitral valve ldrufknoMmx0ErnruuksEtnhTqgiat DezzgixdCxynzfx3IanisWylypbnp5LpymoHenpzoPykwladnRweskcTznrhrelZawnjm0MtahvKfk9 Alive Social History Tobacco UseTypesPacks/DayYears UsedDateSmoking Tobacco: NeverSmokeless Tobacco: Never Tobacco Cessation:Counseling Given: Not Answered Alcohol UseStandard Drinks/WeekCommentsYes6 (1 standard drink = 0.6 oz pure alcohol)B1300 Health LiteracyAnswerDate RecordedHow often do you need to have someone help you when you read instructions, pamphlets, or other written material from your doctor or pharmacy?Never12/23/2024Humiliation, Afraid, Rape, and Kick questionnaireAnswerDate RecordedWithin the last year, have you been afraid of your partner or ex-partner?No12/23/2024Within the last year, have you been humiliated or emotionally abused in other ways by your partner or ex-partner?No12/23/2024Within the last year, have you been kicked, hit, slapped, or otherwise physically hurt by your partner or ex-partner?No12/23/2024Within the last year, have you been raped or forced to have any kind of sexual activity by your partner or ex-partner?No12/23/2024Social Connection and Isolation Panel AnswerDate RecordedIn a typical week, how many times do you talk on the phone with family, friends, or neighbors?More than three times a week12/23/2024How often do you get together with friends or relatives?More than three times a week 12/23/2024How often do you attend hinduism or mu-ism services?Patient declined 12/23/2024Do you belong to any clubs or organizations such as hinduism groups, unions, fraViRTUAL INTERACTiVE or athletic groups, or school groups?Yes12/23/2024How often do you attend meetings of the clubs or organizations you belong to?Patient declined 12/23/2024re you , , , , never , or living with a partner?Lnbsvpk6112/23/2024UDIT-CAnswerDate RecordedQ1: How often do you have a drink containing alcohol?4 or more times a week12/23/2024Q2: How many drinks containing alcohol do you have on a typical day when you are drinking?Patient myicnukp80/01/2025Q3: How often do you have six or more drinks on one occasion?Patient bssmqzyo78/01/2025Overall Financial Resource Strain (CARDIA)AnswerDate RecordedHow hard is it for you to pay for the very basics like food, housing, medical care, and heating?Not hard at all12/23/2024PHQ-2 AnswerDate RecordedPatient Health Questionnaire-2 Dqzua138Fin[facility] [place] of Occupational Health - Occupational Stress QuestionnaireAnswerDate RecordedDo you feel stress - tense, restless, nervous, or anxious, or unable to sleep at night because yourmind is troubled all the time - these days?Not at all 12/23/2024Exercise Vital SignAnswerDate RecordedOn average, how many days per week do you engage in moderate to strenuous exercise (like a brisk walk)?7 days 12/23/2024On average, how many minutes do you engage in exercise at this level? 150+ min12/23/2024Hunger Vital SignAnswerDate RecordedWithin the past 12 months, you worried that your food would run out before you got the money to buymore. Never true12/23/2024Within the past 12 months, the food you bought just didn't last and you didn't have money to get more.Never true12/23/2024PRAPARE - TransportationAnswerDate RecordedIn the past 12 months, has lack of transportation kept you from medical appointments or from getting medications?No 12/23/2024In the past 12 months, has lack of transportation kept you from meetings, work, or from getting things needed for daily living?No12/23/2024 Housing Stability Vital SignAnswerDate RecordedIn the last 12 months, was there a time when you were not able to pay the mortgage or rent on time?Patient fpxcggr4707/17/2023Number of Places Lived in the Last YearNot on file07/17/2023In the last 12 months, was there a time when you did not have a steady place to sleep or slept in [facility] (including now)?Patient xrzswwc4507/17/2023Housing Stability Vital SignAnswerDate RecordedIn the last 12 months, was there a time when you were not able to pay the mortgage or rent on time?No12/23/2024Number of Times Moved in the Last YearNot on file12/23/2024Homeless in the Last YearNot on file12/23/2024Sex and Gender InformationValueDate RecordedSex Assigned at Not on fileLegal ElnEfqc5309/06/2022 7:24 PM EDTGender IdentityNot on fileSexual OrientationNot on file Last Filed Vital Signs Vital SignReadingTime TakenCommentsBlood Aqxynrbe385/7807 2:50 PM EDT Twhif868512/23/2024 2:50 PM XNFBtizmcpyhxq66.8 ??C (98.2 ??F)12/23/2024 2:50 PM EDTRespiratory Rate--Oxygen Uumeigtohs82%12/23/2024 2:50 PM EDTInhaled Oxygen Concentration--Skdbpi41.6 kg (210 lb 12.8 oz)12/23/2024 2:50 PM CGHOabaom853.3 cm (5' 11 )12/23/2024 2:50 PM EDTBody Mass Index29.407 2:50 PM EDT Plan of Treatment Health MaintenanceDue DateLast DoneCommentsCT Wcojnupwxpfs1970Colonoscopy 1970Colorectal Cancer Jedcduchb1970FIT-DNA1970FIT1970 FOBT1970 1472Ppomikhzghasj1970COVID-19 Vaccine (2024- season) 2025Influenza Vaccine (#1)2025Pneumococcal Vaccine: Pediatrics (0 to 5 Years) and At-Risk Patients (6 to 64 Years)Aged OutNo longer eligible based on patient's age to complete this topic Insurance Advance Directives TypeDate RecordedPatient RepresentativeExplanationAdvance Directives and Living Will05/05/2025 4:46 [id number] [facility] Neurology OV Note Care Teams Team MemberRelationshipSpecialtyStart DateEnd Date Magno León MD [address] [place] [address] PCP - GeneralFamily Medicine03/06/24 Serena Obrien NP [address] [place] [address] Nurse PractitionerW[facility] Medicine03/06/24
--- OUTSIDE RECORDS SUMMARY | 2025-05-22 12:04 | XMS_ITS | Clinical Summary ---
Author Organization [facility] Address [address] [facility] [place] [address] Care Team Providers Care Settlement Technician Name Role Phone Marizol Sebastian MD Primary Care Provider [phone] Allergies No known active allergies Medications MedicationSigDispense QuantityRefillsLast FilledStart DateEnd DateStatus aspirin 81 mg EC tablet Take 81 mg by mouth in the morning.5Active atorvastatin (Lipitor) 40 mg tablet Take 40 mg by mouth in the morning.5Active Active Problems ProblemNoted DateDiagnosed DatePFO (patent foramen ovale)05/08/2025OSA (obstructive sleep apnea)01/01/2025olon cancer /24/2024 Encounters DateTypeDepartmentCare PdxqWjmgzmhdqmo26/25/3021Zgmxll49/14/2025Orders Only [place] [address] [place] [address] Ana Flores MA PFO (patent foramen ovale) (Primary Dx); Pre-op gfgqddu1305/08/2025Telephone [facility] [address] [place] [address] Ana Flores MA 04/27/2025Telephone [facility] [address] [place] [address] Dot Herzog MA 03/25/2025Orders Only [place] [address] [place] [address] Trever FloresRACHEAL gilmore PFO (patent foramen ovale) (Primary Dx)03/25/2025Telephone [facility] Heart at [facility] [address] [place] [address] Trever FloresahRACHEAL from Last 3 Months Family History Medical HistoryRelationNameCommentsHeart attackFatherHeart attackMotheraortic valve replacementSonleft ventricle dilationSonRelationNameStatusCommentsFather MotherSonOther Social History Tobacco UseTypesPacks/DayYears UsedDateSmoking Tobacco: NeverSmokeless Tobacco: Never Tobacco Cessation:Counseling Given: Not Answered Alcohol UseStandard Drinks/WeekCommentsYes0 (1 standard drink = 0.6 oz pure alcohol)6 pack beer dailySex and Gender InformationValueDate RecordedSex Assigned at NswdzEpei29/01/2025 8:54 AM EDTLegal HzhMmvy0212/17/2024 3:35 PM EDT Gender DdlrfowdXrnn96/01/2025 8:54 AM EDTSexual OrientationHeterosexual or Rapvzxkw87/01/2025 8:54 AM EDT Last Filed Vital Signs Vital SignReadingTime TakenCommentsBlood Xnruzgnv341/8101/23/2025 12:00 PM EDT Lelit612601/23/2025 12:00 PM EDTTemperature--Respiratory Xnwc0050 12:00 PM EDTOxygen Uonicjslsc85%01/23/2025 12:00 PM EDTInhaled Oxygen Concentration-- Klvdwh97.4 kg (206 lb)01/01/2025 11:56 AM XCANanluh677.3 cm (5' 11 )03/16/2025 9:00 AM EDTBody Mass Index28.7301/01/2025 11:56 AM EDT Plan of Treatment DateTypeDepartmentCare Team (Latest Contact Info)Wdkwmvhvhho24/04/2025 6:30 AM ESTHospital Encounter [facility] Heart [facility] Vascular Lab [address] [place] [address] Magnus George MD [address] [facility] [address] [place] [address] PFO (patent foramen ovale)05/28/2025 8:30 AM EST - 05/28/2025 10:30 AM EST Surgery [facility] [address] [place] [phone] Magnus George MD [address] [facility] [address] [place] [address] Patent foramen ovale closure [01247 (CPT??)]Health MaintenanceDue DateLast Done CommentsCT Xxypioiysiwn59/06/4008Lppgyqrgtsc1970Colorectal Cancer Ksovcyrkx1970FIT-DNA1970FIT1970FOBT1970igmoidoscopy 1970Depression Pykhamcrt79/06/1982Hepatitis B Vaccines (1 of 3 - 19+ 3- dose series)1989Adult Iaklrng4801/29/1992Zoster Vaccines (1 of 2)01/29/2020 Influenza Vaccine (#1)2025HIB VaccinesAged OutNo longer eligible based on patient's age to complete this topicHPV VaccinesAged OutNo longer eligible based on patient's age to complete this topicIPV VaccinesAged OutNo longer eligible based on patient's age to complete this topicMeningococcal B VaccineAged OutNo longer eligible based on patient's age to complete this topicMeningococcal VaccineAged OutNo longer eligible based on patient's age to complete this topic Pneumococcal Vaccine: Pediatrics (0 to 5 Years) and At-Risk Patients (6 to 64 Years)Aged OutNo longer eligible based on patient's age to complete this topic Rotavirus VaccinesAged OutNo longer eligible based on patient's age to complete this topic Insurance Care Teams Team MemberRelationshipSpecialtyStart DateEnd Date Marizol Sebastian MD [address] [place] [address] PCP - GeneralFamily Medicine01/01/25
--- OUTSIDE RECORDS SUMMARY | 2025-05-22 12:04 | XMS_ITS | Clinical Summary ---
Author Organization [facility] Address [id number] [place] [address] Care Team Providers Care Splitting Machine Operator Name Role Phone Unavailable Primary Care Provider Unavailabl e Social History Tobacco UseTypesPacks/DayYears UsedDateSmoking Tobacco: Never AssessedSex and Gender InformationValueDate RecordedSex Assigned at BirthNot on fileLegal Sex Male12/16/2024 10:08 AM EDTGender IdentityNot on fileSexual OrientationNot on file Plan of Treatment Health MaintenanceDue DateLast DoneCommentsDepression Tpylttesc49/06/1982Tobacco Gobxdllvo91/06/1982Adult BMI Uebhqrimg84/06/1988DTaP,Tdap and Td Vaccines (1 - Tdap)1989Zoster (Shingles) Vaccine (1 of 2)01/29/2020Influenza Vaccine 02/23/2025 Medical Devices Not on file Insurance
[2025-05-22 12:31] LABS: Hematocrit 39.5 % (42.0-54.0); Hemoglobin 13.2 g/dL (14.0-18.0); Immature Granulocytes Abs Auto 0.02 10^3/uL (0.00-0.03); Immature Granulocytes Pct Auto 0.3 % (0.0-0.5); Lymphocytes Absolute Auto 1.7 10^3/uL (1.2-3.8); Mean Corpuscular HGB Conc 33.4 g/dL (29.9-35.2); Mean Corpuscular Hemoglobin 31.2 pg (25.9-34.0); Mean Corpuscular Volume 93.4 fL (80.0-94.0); Platelet Count 305 10^3/uL (150-450); Red Blood Count 4.23 10^6/uL (4.70-6.10); White Blood Count 8.0 10^3/uL (4.0-11.0)
[2025-05-22 12:37] LABS: Anion Gap 10.9; Blood Urea Nitrogen 16.0 mg/dL (7.0-18.0); Calcium 8.8 mg/dL (8.5-10.1); Carbon Dioxide 30.2 mmol/L (21.0-32.0); Chloride 101 mmol/L (98-107); Estimated GFR (African America >60 (>=60 mL/min/1.73m^2); Estimated GFR (Non-African Ame >60 (>=60 mL/min/1.73m^2); Glucose 170 mg/dL (74-106); Potassium 4.1 mmol/L (3.5-5.1); Sodium 138 mmol/L (136-145)
== END 2025-05-22 11:58 | disposition home or self-care (01) ==
LOC: LAB 12:00
PROVIDERS: Visit Provider Internal Medicine Interventional Cardiology
DX: Z01.818 Encounter for other preprocedural examination (principal); Q21.12 Patent foramen ovale
CPT/HCPCS: 36415; 80048; 85025